=== PATIENT | female | born 1980 | race Caucasian/White ===

== ENCOUNTER 2016-10-28 19:26 | Observation (INO) | payer OTHER ==
[~2016-10-28] VITALS: Ht 162.6 cm; Wt 117.0 kg
--- NOTE | 2016-10-28 19:40 | NUR ---
PT TO TRIAGE WITH RIGHT SIDE ABD PAIN 6/10, SHARP AT TIMES. NAUSEOUS YESTERDAY. DENIES FEVERS. PT HAS HAD CONSTPATION.
--- NOTE | 2016-10-28 19:57 | NUR ---
URINE TRIO OBTAINED SENT TO THE LAB
--- NOTE | 2016-10-28 20:11 | NUR ---
PA STUDENT AT BEDSIDE FOR EVAL
[2016-10-28] MEDS ORDERED: APRI 28 DAY TA1 EACH PO (20:33)
[2016-10-28] MEDS ORDERED: VITAMIN D250000 UNIT PO (20:33)
--- NOTE | 2016-10-28 20:36 | NUR ---
LABS DRAWN AND SENT
--- NOTE | 2016-10-28 20:46 | NUR ---
LUZ MARINA VERMA AT BEDSIDE
[2016-10-28 20:48] LABS: ABSOLUTE BASOPHIL COUNT 0 /CUMM (0.0-0.2); ABSOLUTE EOSINOPHIL COUNT 0.1 /CUMM (0.0-0.7); ABSOLUTE GRANULOCYTE CT 5.8 /CUMM (1.4-6.5); ABSOLUTE LYMPH COUNT 4.1 /CUMM (1.2-3.4); ABSOLUTE MONOCYTE COUNT 0.8 /CUMM (0.10-0.60); BASOPHIL % 0.4 % (0.0-2.0); GRANULOCYTE % 53.5 % (42.2-75.2); MEAN CORPUSCULAR HGB 26.7 PG (27.0-31.0); MEAN CORPUSCULAR HGB CONC 32.3 G/DL (33.0-37.0); MEAN CORPUSCULAR VOLUME 82.5 FL (81.0-99.0); MEAN PLATELET VOLUME 8.6 FL (7.4-10.4); PLATELET COUNT 323 /CUMM (130-400); RBC DISTRIBUTION WIDTH 13.4 % (11.5-14.5); RED BLOOD CELL CT 4.37 /CUMM (4.20-5.40); WHITE BLOOD CELL COUNT 10.8 /CUMM (4.8-10.8)
--- NOTE | 2016-10-28 21:51 | NUR ---
PT TO AND FROM CT
--- NOTE | 2016-10-28 22:42 | CT SCAN REPORT ---
EXAMINATION: CT ABDOMEN AND PELVIS WITHOUT CONTRAST CLINICAL INFORMATION: Right-sided abdominal pain. Evaluate for acute appendicitis. COMPARISON: No relevant prior imaging available. TECHNIQUE: Multidetector volumetric imaging was performed from the superior aspect of the liver through the pubic symphysis. Sagittal and coronal reformatted images were obtained on the technologist's workstation. DLP: 1402.99 mGy-cm FINDINGS: LUNG BASES: Lung bases are clear. There is no pleural or pericardial effusion. LIVER, GALLBLADDER, AND BILIARY TREE: The unenhanced liver is normal in size, shape, and attenuation. No focal hepatic lesion. The gallbladder is unremarkable with no evidence of radiopaque gallstones, gallbladder wall thickening, or obvious pericholecystic inflammatory changes. PANCREAS: Unremarkable. SPLEEN: Unremarkable. ADRENAL GLANDS: Unremarkable. KIDNEYS AND URETERS: There is a 1.4 cm low-density lesion involving the interpolar left kidney best illustrated on axial image 34 of 102 series 2. The density of this lesion measures less than 0 Hounsfield units therefore it may represent a renal angiomyolipoma. Otherwise no discrete renal mass. No hydroureteronephrosis. No worrisome mass or calcification is visualized along the expected course of the right or left ureters. BLADDER: Unremarkable. GASTROINTESTINAL TRACT: There is subtle stranding surrounding a fluid-filled appendix that measures 1.0 cm in maximal diameter best illustrated on sagittal image 109 of 159 series 601. The stomach, small bowel, and colon are otherwise unremarkable. There is no perirectal inflammation. No free intraperitoneal air or fluid. ABDOMINAL WALL: There is a small fat-containing umbilical hernia with no evidence of associated translation. LYMPH NODES: There are a few scattered nonspecific mesenteric lymph nodes. VASCULAR: The unenhanced abdominal aorta and inferior vena cava are unremarkable. PELVIC VISCERA: There is an anteverted uterus. No worrisome adnexal mass. OSSEOUS STRUCTURES: There is a small nonspecific sclerotic lesion within the right ilium best illustrated on axial image 74 of 102 series 2. This finding is suspected to represent a bone island. No other worrisome sclerotic lesions are evident within the [place]ge[place] this examination. There is no evidence of acute fracture or subluxation. There is degenerative spondylosis with associated sclerotic degenerative endplate changes and intervertebral vacuum disc phenomenon at the levels of L4-L5 and L5-S1. IMPRESSION: There is slight enlargement of a fluid-filled appendix that measures 1.0 cm in maximal diameter consistent with early changes of acute appendicitis. Incidentally there is a small well marginated lesion with intralesional fat characteristics involving the interpolar left kidney that measures 1.4 cm in diameter. This finding is felt to represent an angiomyolipoma.
--- NOTE | 2016-10-28 23:15 | NUR ---
LUZ MARINA VERMA IN TO DISCUSS RESULTS AND POC
--- NOTE | 2016-10-29 00:11 | History & Physical ---
SELMA ANDUJAR 10/29/16 0000: General Information and HPI Source of Information: patient Exam Limitations: no limitations History of Present Illness: Patient is a 36yo F that presented to [facility] with 2 day history of abdominal pain. Patient first noticed abdominal discomfort and mild epigastric pain which started late Thursday night to early Thursday morning. Pain has persisted and now mostly located in RLQ but also R flank. She denies N/V and has had only a slight decrease in appetite. She continues to pass flatus and have non bloody formed bowel movements. She denies recent fevers or illnesses. Denies recent travel. Denies illicit drug or alcohol use. No further c/o. Denies CP/SOB. Allergies/Medications Allergies: Coded Allergies: Penicillins (DIARRHEA 10/28/16) azithromycin (DIARRHEA 10/28/16) chilel (HIVES 10/28/16) Home Med list Desogestrel-Ethinyl Estradiol (Apri 28 Day Tablet) 0.15 MG-0.03 MG TABLET 1 TAB PO DAILY CONTROL (Reported) Ergocalciferol (Vitamin D2) (Vitamin D2) 50,000 UNIT CAPSULE 1 CAP PO QTHURS SUPPLEMENT (Reported) Compliance With Home Meds: GOOD Past History Travel History Traveled to [place] past 21 day No Medical History Neurological: migraine EENT: NONE Cardiovascular: NONE Respiratory: pneumonia Gastrointestinal: NONE Hepatic: NONE Renal: NONE Musculoskeletal: NONE Psychiatric: NONE Endocrine: NONE Blood Disorders: NONE Cancer(s): NONE EVALUATOR/Reproductive: NONE Surgical History Surgical History: non-contributory Past Family/Social History Psychosocial History ETOH Use: denies use Illicit Drug Use: denies illicit drug use Review of Systems Review of Systems Constitutional: Denies: chills, fever, malaise. Cardiovascular: Denies: chest pain, palpitations. Respiratory: Denies: cough, short of breath, sputum production. GI: Reports: see HPI. Genitourinary: Denies: dysuria, frequency, hematuria. Musculoskeletal: Reports: no symptoms. Skin: Reports: no symptoms. All Other Systems: Reviewed and Negative Exam & Diagnostic Data Last 24 Hrs of Vital Signs/I&O Vital Signs Date Time Temp Pulse Resp B/P Pulse O2 O2 Flow FiO2 Ox Delivery Rate 10/280 97.5 81 19 156/83 98 Room Air 10/28 2036 Room Air 03/21 1940 98.0 91 16 150/79 98 Room Air Room Air Intake & Output 10/29 0800 10/29 0000 10/28 1600 Intake Total Output Total Balance Patient 258 lb Weight Physical Exam General Appearance Alert, Oriented X3, Cooperative, No Acute Distress Skin No Rashes, No Breakdown, No Significant Lesion HEENT Atraumatic, EOMI, Mucous Membr. moist/pink Neck Supple Cardiovascular Regular Rate Lungs Normal Air Movement Abdomen Normal Bowel Sounds, Soft, No Masses, +McBurney point tenderness without guarding or signs of peritonitis. Neurological Normal Speech, Cranial Nerves 3-12 NL Extremities No Clubbing, No Cyanosis, No Edema, Normal Pulses Last 24 Hrs of Labs/Jalen: Laboratory Tests 10/28/162033: Anion Gap 8, Estimated GFR > 60, BUN/Creatinine Ratio 11.4, Glucose 84, Calcium 9.4, Total Bilirubin 0.4, AST 16, ALT 39, Alkaline Phosphatase 84, Total Protein 6.8, Albumin 3.6, Globulin 3.2, Albumin/Globulin Ratio 1.1, Lipase 35, CBC w Diff NO MAN DIFF REQ, RBC 4.37, MCV 82.5, MCH 26.7 L, RDW 13.4, MPV 8.6, Gran % 53.5, Lymphocytes % 38.0, Monocytes % 7.1, Eosinophils % 1.0, Basophils % 0.4, Absolute Granulocytes 5.8, Absolute Lymphocytes 4.1 H, Absolute Monocytes 0.8 H, Absolute Eosinophils 0.1, Absolute Basophils 0, PUBS MCHC 32.3 L 10/28/161955: Urine Color YEL, Urine Clarity CLEAR, Urine pH 6.0, Ur Specific [place] >= 1.030 , Urine Protein NEG, Urine Ketones NEG, Urine Nitrite NEG, Urine Bilirubin NEG, Urine Urobilinogen 0.2, Ur Leukocyte Esterase NEG, Ur Microscopic EXAM NOT REQUIRED, Urine Hemoglobin NEG, Urine Glucose NEG, Urine Test NEGATIVE Diagnostic Data Other Results EXAM TYPE: CAT - CT ABD & PELVIS W/O IV CONTRAS EXAMINATION: CT ABDOMEN AND PELVIS WITHOUT CONTRAST CLINICAL INFORMATION: Right-sided abdominal pain. Evaluate for acute appendicitis. COMPARISON: No relevant prior imaging available. TECHNIQUE: Multidetector volumetric imaging was performed from the superior aspect of the liver through the pubic symphysis. Sagittal and coronal reformatted images were obtained on the technologist's workstation. DLP: 1402.99 mGy-cm FINDINGS: LUNG BASES: Lung bases are clear. There is no pleural or pericardial effusion. LIVER, GALLBLADDER, AND BILIARY TREE: The unenhanced liver is normal in size, shape, and attenuation. No focal hepatic lesion. The gallbladder is unremarkable with no evidence of radiopaque gallstones, gallbladder wall thickening, or obvious pericholecystic inflammatory changes. PANCREAS: Unremarkable. SPLEEN: Unremarkable. ADRENAL GLANDS: Unremarkable. KIDNEYS AND URETERS: There is a 1.4 cm low-density lesion involving the interpolar left kidney best illustrated on axial image 34 of 102 series 2. The density of this lesion measures less than 0 Hounsfield units therefore it may represent a renal angiomyolipoma. Otherwise no discrete renal mass. No hydroureteronephrosis. No worrisome mass or calcification is visualized along the expected course of the right or left ureters. BLADDER: Unremarkable. GASTROINTESTINAL TRACT: There is subtle stranding surrounding a fluid-filled appendix that measures 1.0 cm in maximal diameter best illustrated on sagittal image 109 of 159 series 601. The stomach, small bowel, and colon are otherwise unremarkable. There is no perirectal inflammation. No free intraperitoneal air or fluid. ABDOMINAL WALL: There is a small fat-containing umbilical hernia with no evidence of associated translation. LYMPH NODES: There are a few scattered nonspecific mesenteric lymph nodes. VASCULAR: The unenhanced abdominal aorta and inferior vena cava are unremarkable. PELVIC VISCERA: There is an anteverted uterus. No worrisome adnexal mass. OSSEOUS STRUCTURES: There is a small nonspecific sclerotic lesion within the right ilium best illustrated on axial image 74 of 102 series 2. This finding is suspected to represent a bone island. No other worrisome sclerotic lesions are evident within the pxhie-gm-bpvm this examination. There is no evidence of acute fracture or subluxation. There is degenerative spondylosis with associated sclerotic degenerative endplate changes and intervertebral vacuum disc phenomenon at the levels of L4-L5 and L5-S1. IMPRESSION: There is slight enlargement of a fluid-filled appendix that measures 1.0 cm in maximal diameter consistent with early changes of acute appendicitis. Incidentally there is a small well marginated lesion with intralesional fat characteristics involving the interpolar left kidney that measures 1.4 cm in diameter. This finding is felt to represent an angiomyolipoma. Assessment/Plan Assessment: 36yo F with acute appendicitis. AVSS, patient remains stable. Appendicitis likely not ruptured at this time. - admit to floor under Dr. Tenzin Ford - NPO - IVF - IV Rocephin and Flagyl - SC heparin and ALPS - I/O's - PRN IV Pain meds - OR tomorrow for laparoscopic vs open appendectomy - Will d/w attending As Ranked By This Provider Problem List: 1. Appendicitis, acute Core Measures/Miscellaneous Acute Coronary Syndrome ACS Diagnosis: No Cerebrovascular Accident CVA/TIA Diagnosis: No Congestive Heart Failure CHF Diagnosis: No Venous Thromboembolism VTE Risk Factors: Acute medical illness, Obesity No Mech VTE prophylaxis d/t: No contraindications No VTE Pharm Prophylaxis d/t: No contraindications VTE Diagnosis: No VTE Type: NONE VTE Confirmed by (Test): NONE Severe Sepsis Severe Sepsis Present: No Septic Shock Septic Shock Present: No Miscellaneous Documentation Attending Case Discussed With: Dr. Cece Ford Primary Care Physician: UNKNOWN Patient sees these Specialists Unknown Level of Patient Care: General Surgical TENZIN FORD MD 10/29/16 1683: General Information and HPI MD Statement: I have seen and personally examined YESYADCHENG and documented this H&P. The patient is a 36 year old F who presented with a patient stated chief complaint of [abdominal pain CT consistent with acute appendicitis Agree with above PA findings and physical exam plan for laparoscopic appendectomy].
--- NOTE | 2016-10-29 00:20 | ED GI/GU/ABDOMINAL COMPLAINT ---
History of Present Illness General Chief Complaint: Abdominal Pain/Flank Pain Stated Complaint: ABD. PAIN Source: patient Exam Limitations: no limitations Vital Signs & Intake/Output Vital Signs & Intake/Output Vital Signs Date Time Temp Pulse Resp B/P Pulse O2 O2 Flow FiO2 Ox Delivery Rate 10/28 2300 97.5 81 19 156/83 98 Room Air 10/28 2036 Room Air 10/28 194 98.0 91 16 150/79 98 Room Air Room Air ED Intake and Output 10/29 0000 10/28 1200 Intake Total Output Total Balance Patient 258 lb Weight Allergies Coded Allergies: Penicillins (DIARRHEA 10/28/16) azithromycin (DIARRHEA 10/28/16) chilel (HIVES 10/28/16) Reconcile Medications Desogestrel-Ethinyl Estradiol (Apri 28 Day Tablet) 0.15 MG-0.03 MG TABLET 1 TAB PO DAILY CONTROL (Reported) Ergocalciferol (Vitamin D2) (Vitamin D2) 50,000 UNIT CAPSULE 1 CAP PO QTHURS SUPPLEMENT (Reported) Triage Note: PT TO TRIAGE WITH RIGHT SIDE ABD PAIN 6/10, SHARP AT TIMES. NAUSEOUS YESTERDAY. DENIES FEVERS. PT HAS HAD CONSTPATION. Triage Nurses Notes Reviewed? yes ? n Is pt currently ? No Onset: Abrupt Duration: day(s): (4), constant, continues in ED Timing: recent history Quality/Severity: mild, moderate Location: right lower quadrant Radiation: no radiation Activities at Onset: none No Modifying Factors: none HPI: 36-year-old female comes into emergency room with right-sided abdominal pain for the past 4 days. Normal appetite. Denies any fever chills vomiting. Some mild constipation. Pain has been jumping all around. Denies any prior abdominal surgeries. Nothing seems to make the symptoms better or worse. Patient reports that her last meal was around noon today. Patient reports that she is currently starving and asking for food. (LUCI SANTOS) Past History Travel History Traveled to [place] past 21 day No Medical History Any Pertinent Medical History? see below for history Neurological: migraine EENT: NONE Cardiovascular: NONE Respiratory: pneumonia Gastrointestinal: NONE Hepatic: NONE Renal: NONE Musculoskeletal: NONE Psychiatric: NONE Endocrine: NONE Blood Disorders: NONE Cancer(s): NONE HOME AGENT/Reproductive: NONE Surgical History Surgical History: non-contributory Psychosocial History What is your primary language [place] Tobacco Use: Never used ETOH Use: denies use Illicit Drug Use: denies illicit drug use Family History Hx Contributory? No (LUCI SANTOS) Review of Systems Review of Systems Constitutional: Reports: no symptoms. EENTM: Reports: no symptoms. Respiratory: Reports: no symptoms. Cardiovascular: Reports: no symptoms. GI: Reports: see HPI. Genitourinary: Reports: no symptoms. Musculoskeletal: Reports: no symptoms. Skin: Reports: no symptoms. Neurological/Psychological: Reports: no symptoms. Hematologic/Endocrine: Reports: no symptoms. Immunologic/Allergic: Reports: no symptoms. All Other Systems: Reviewed and Negative (LUCI SANTOS) Physical Exam Physical Exam General Appearance: well developed/nourished, no apparent distress, alert Head: atraumatic, normal appearance Eyes: Bilateral: normal appearance, EOMI. Ears, Nose, Throat, Mouth: hearing grossly normal, moist mucous membrane Neck: normal inspection Respiratory: normal breath sounds, no respiratory distress Cardiovascular: regular rate/rhythm Gastrointestinal: soft, tenderness (right lower quadrant) Back: normal inspection Extremities: normal range of motion Neurologic/Psych: awake, alert, oriented x 3, normal gait, normal mood/affect Skin: intact, normal color Core Measures ACS in differential dx? No Severe Sepsis Present: No Septic Shock Present: No (LUCI SANTOS) Progress Differential Diagnosis: appendicitis, biliary colic, bowel obstruction, cholecystitis, diverticulitis, ectopic , gastritis, hepatitis, hemorrhoids, ovarian cyst, ovarian torsion, pancreatitis, PID/cervicitis, peptic ulcer, PUD/GERD, perforated viscous, threatened AB, UTI/pyelo Plan of Care: Orders Procedure Date/time Status Nothing by Mouth 10/29 B Active CBC WITHOUT DIFFERENTIAL 10/29 06 Active BASIC ELECTROLYTES PLUS BUN&CR 10/[address] in observation 10/29 0036 Active Pathway - chart 10/28 2358 Active Patient Data 10/28 2358 Active Code Status 10/28 2358 Active LIPASE 10/28 2014 Complete COMPREHENSIVE METABOLIC PANEL 10/28 2014 Complete CBC WITHOUT DIFFERENTIAL 10/28 2014 Complete URINE 10/28 194 Complete URINALYSIS 10/28 194 Complete VTE Mechanical Prophylaxis 10/28 UNK Active Vital Signs 10/28 UNK Active Intake & Output 10/28 UNK Active Activity/Ambulation 10/28 UNK Active Current Medications Sig/Home Start time Last Medication Dose Stop Time Status Admin Ceftriaxone Sodium 1,000 MG DAILY@0000 10/30 0000 AC (Rocephin) Pantoprazole Sodium 40 MG DAILY 10/29 1000 AC (Protonix) Acetaminophen 650 MG Q6PRN PRN 10/28 2344 AC (Tylenol) Morphine Sulfate 2 MG Q3P PRN 10/28 2344 AC (Morphine) Ondansetron HCl 4 MG Q8P PRN 10/28 2344 AC (Zofran) Metronidazole 500 MG ONCE ONE 10/28 2329 CAN (Flagyl) 10/29 0029 N/A 1 UNIT (No Carrier) Laboratory Tests 10/28/162033: Anion Gap 8, Estimated GFR > 60, BUN/Creatinine Ratio 11.4, Glucose 84, Calcium 9.4, Total Bilirubin 0.4, AST 16, ALT 39, Alkaline Phosphatase 84, Total Protein 6.8, Albumin 3.6, Globulin 3.2, Albumin/Globulin Ratio 1.1, Lipase 35, CBC w Diff NO MAN DIFF REQ, RBC 4.37, MCV 82.5, MCH 26.7 L, RDW 13.4, MPV 8.6, Gran % 53.5, Lymphocytes % 38.0, Monocytes % 7.1, Eosinophils % 1.0, Basophils % 0.4, Absolute Granulocytes 5.8, Absolute Lymphocytes 4.1 H, Absolute Monocytes 0.8 H, Absolute Eosinophils 0.1, Absolute Basophils 0, PUBS MCHC 32.3 L 10/28/161955: Urine Color YEL, Urine Clarity CLEAR, Urine pH 6.0, Ur Specific [place] >= 1.030 , Urine Protein NEG, Urine Ketones NEG, Urine Nitrite NEG, Urine Bilirubin NEG, Urine Urobilinogen 0.2, Ur Leukocyte Esterase NEG, Ur Microscopic EXAM NOT REQUIRED, Urine Hemoglobin NEG, Urine Glucose NEG, Urine Test NEGATIVE Diagnostic Imaging: Viewed by Me: CT Scan. Discussed w/RAD: CT Scan. Radiology Impression: SERVICE DATE: 10/28/16-2116 EXAM TYPE: CAT - CT ABD & PELVIS W/O IV CONTRAS EXAMINATION: CT ABDOMEN AND PELVIS WITHOUT CONTRAST CLINICAL INFORMATION: Right-sided abdominal pain. Evaluate for acute appendicitis. COMPARISON: No relevant prior imaging available. TECHNIQUE: Multidetector volumetric imaging was performed from the superior aspect of the liver through the pubic symphysis. Sagittal and coronal reformatted images were obtained on the technologist's workstation. DLP: 1402.99 mGy-cm FINDINGS: LUNG BASES: Lung bases are clear. There is no pleural or pericardial effusion. LIVER, GALLBLADDER, AND BILIARY TREE: The unenhanced liver is normal in size, shape, and attenuation. No focal hepatic lesion. The gallbladder is unremarkable with no evidence of radiopaque gallstones, gallbladder wall thickening, or obvious pericholecystic inflammatory changes. PANCREAS: Unremarkable. SPLEEN: Unremarkable. ADRENAL GLANDS: Unremarkable. KIDNEYS AND URETERS: There is a 1.4 cm low-density lesion involving the interpolar left kidney best illustrated on axial image 34 of 102 series 2. The density of this lesion measures less than 0 Hounsfield units therefore it may represent a renal angiomyolipoma. Otherwise no discrete renal mass. No hydroureteronephrosis. No worrisome mass or calcification is visualized along the expected course of the right or left ureters. BLADDER: Unremarkable. GASTROINTESTINAL TRACT: There is subtle stranding surrounding a fluid-filled appendix that measures 1.0 cm in maximal diameter best illustrated on sagittal image 109 of 159 series 601. The stomach, small bowel, and colon are otherwise unremarkable. There is no perirectal inflammation. No free intraperitoneal air or fluid. ABDOMINAL WALL: There is a small fat-containing umbilical hernia with no evidence of associated translation. LYMPH NODES: There are a few scattered nonspecific mesenteric lymph nodes. VASCULAR: The unenhanced abdominal aorta and inferior vena cava are unremarkable. PELVIC VISCERA: There is an anteverted uterus. No worrisome adnexal mass. OSSEOUS STRUCTURES: There is a small nonspecific sclerotic lesion within the right ilium best illustrated on axial image 74 of 102 series 2. This finding is suspected to represent a bone island. No other worrisome sclerotic lesions are evident within the [id number] this examination. There is no evidence of acute fracture or subluxation. There is degenerative spondylosis with associated sclerotic degenerative endplate changes and intervertebral vacuum disc phenomenon at the levels of L4-L5 and L5-S1. IMPRESSION: There is slight enlargement of a fluid-filled appendix that measures 1.0 cm in maximal diameter consistent with early changes of acute appendicitis. Incidentally there is a small well marginated lesion with intralesional fat characteristics involving the interpolar left kidney that measures 1.4 cm in diameter. This finding is felt to represent an angiomyolipoma. DICTATED BY: MARTI GIRON,EVY Niño DATE/TIME DICTATED:10/28/162227 PEANUT FARMER:MERCEDEZ Initial ED EKG: none (LUCI SANTOS) Departure Departure Disposition: STILL A PATIENT Condition: Stable Clinical Impression Primary Impression: Acute appendicitis Referrals: UNKNOWN (PCP/Family) Departure Forms: Customer Survey General Discharge Information Observation Note Spoke With: CORNELIA BRANTLEY MD Physician Advisor Notified: WELLINGTON SUTTON DO Place Patient In: Non-ED OBS Care Area Rationale for Observation: My rational for observation is as follows . Patient require surgery tomorrow morning. IV antibiotics. Positive CT scan for appendicitis. (LUCI SANTOS) PA/PROPERTY MANAGEMENT SPECIALIST Co-Sign Statement Statement: ED Attending supervision documentation- [] I saw and evaluated the patient. I have also reviewed all the pertinent lab results and diagnostic results. I agree with the findings and the plan of care as documented in the PA's/PROPERTY MANAGEMENT SPECIALIST's documentation. [x] I have reviewed the ED Record and agree with the PA's/PROPERTY MANAGEMENT SPECIALIST's documentation. [] Additions or exceptions (if any) to the PAs/PROPERTY MANAGEMENT SPECIALIST's note and plan are summarized below: [] (NATALY GIRON,RADHA Baeza)
--- NOTE | 2016-10-29 00:34 | NUR ---
PT APPEARS TO BE RESTING COMFORTBALY. DENIES PAIN AND NAUSEA. RESP UNLABORED. SKIN WARM AND DRY. NO APPARENT DISTRESS
--- NOTE | 2016-10-29 02:30 | NUR ---
PT APPEARS TO BE RESTING COMFORTBALY. PT A/O X4. RESP UNLABORED. SKIN WARM AND DRY. PT AMBULATORY TO BATHROOM. PT DENIES NAUSEA AND AND PAIN
--- NOTE | 2016-10-29 03:26 | NUR ---
PT BED ASSIGNMENT 204-1
--- NOTE | 2016-10-29 03:52 | NUR ---
REPORT GIVEN TO LIVIA PEARSON
[2016-10-29 04:49] VITALS: BP 140/86
[2016-10-29 05:48] VITALS: BP 156/96
[2016-10-29 06:49] VITALS: BP 170/80
[2016-10-29] MEDS ORDERED: PERCOCET 5-3251 EACH PO (06:51)
--- NOTE | 2016-10-29 06:54 | Patient Discharge Instructions ---
Discharge Instructions General Discharge Information You were seen/treated for: Acute appendicitis You had these procedures: Laparoscopic appendectomy Watch for these problems: Significantly increased pain, temperatures over 101, vomiting Increased redness or drainage from around the incisions No bath, but you may shower: Yes Other wound care: Remove dressings in 24 hours leaving white strips intact until seen by your surgeon. Shower regularly and pat dry Diet Continue normal diet: Yes Activity Activity Self Limited: Yes Pounds, do NOT lift more than: 10 Other activity limits: No driving or operating heavy machinery until seen by your surgeon Acute Coronary Syndrome Inclusion Criteria At DC or during hospital stay patient has or had the following: ACS DIAGNOSIS No Discharge Core Measures Meds if any: Prescribed or Continued at Discharge Meds if any: NOT Prescribed or Continued at Discharge Congestive Heart Failure Inclusion Criteria At DC or during hospital stay patient has or had the following: CHF DIAGNOSIS No Discharge Core Measures Meds if any: Prescribed or Continued at Discharge Meds if any: NOT Prescribed or Continued at Discharge Cerebrovascular accident Inclusion Criteria At DC or during hospital stay patient has or had the following: CVA/TIA Diagnosis No Discharge Core Measures Meds if any: Prescribed or Continued at Discharge Meds if any: NOT Prescribed or Continued at Discharge Venous thromboembolism Inclusion Criteria VTE Diagnosis No VTE Type NONE VTE Confirmed by (Test) NONE Discharge Core Measures - Per Current guidelines, there needs to be overlap - treatment for the first 5 days of Warfarin therapy. - If discharged on Warfarin prior to 5 days of - overlap therapy, the patient will need to be - assessed for post discharge needs including - *Post discharge parental anticoagulation - *Warfarin and/or parental anticoagulation education - *Follow up date to check INR post discharge At least 5 days overlap therapy as Inpatient No Meds if any: Prescribed or Continued at Discharge Note: Overlap Therapy is Warfarin and Anticoagulant Meds if any: NOT Prescribed or Continued at Discharge
--- NOTE | 2016-10-29 06:56 | Surg Short-stay <48hrs Dis Sum ---
Visit Information Visit Dates Admission Date: 10/29/16 Discharge Date: 10/29/16 Surgical Short Stay DC Summary Admission Diagnosis: Acute appendicitis Final Diagnosis: Same Procedure(s): Laparoscopic appendectomy Summary/Significant Findings: The patient was admitted on 10/29/2016. She reports operating theater where she underwent a laparoscopic appendectomy. Postoperative the patient progressed as expected, her pain was under adequate control, she tolerated diet without nausea. The patient was discharged with an uneventful hospital course. Condition at Discharge: Stable Discharge Disposition: home or self care Discharge instructions provided to patient/family: Yes Post discharge follow-up plan: Call the office to be seen in 2 weeks
--- NOTE | 2016-10-29 07:51 | NUR ---
NURSING NOTE; ASSUMED CARE OF PT; PT IN OR. WILL DO COMPLETE ASSESSMENT UPON RETURN TO FLOOR.
[2016-10-29 09:15] VITALS: BP 128/80
--- NOTE | 2016-10-29 09:15 | NUR ---
NURSING NOTE; PT BACK TO FLOOR VIA STRETCHER WITH DISTRIBUTION FROM PACU, S/P LAP APPY. PT AWAKE, A/OX3, AMBULATED FROM STRETCHER TO BR; VOIDED 300ML CLEAR YELLOW URINE IN HAT. VITALS OBTAINED AND STABLE, ROOM AIR, INSENTIVE SPIR GIVEN, 3 BANDAIDS TO ABD C/D/I. PT C/O 08/19 PAIN TO ABDOMEN; DENIES NEED FOR PAIN MEDS, IV SITES X2 INTACT, IVF PER MD ORDER, ALPS IN PLACE. PT ASKING TO ORDER FOOD, LOT ASSOCIATE TO COME TAKE ORDER. CALL TAVARES IN REACH, AT BEDSIDE, CONT TO MONITOR.
[2016-10-29 14:39] VITALS: BP 134/80
--- NOTE | 2016-11-09 18:26 | Operative Report ---
Operative/Inv Procedure Report Surgery Date: 10/29/16 Name of Procedure: Laparoscopic Appendectomy Pre-Operative Diagnosis: acute appendicitis Post-Operative Diagnosis: same Estimated Blood Loss: less than 50ml Surgeon/Certified Corporate [employer] Executive: CORNELIA BRANTLEY MD Anesthesia: general endotracheal tube IV Fluids: LR Urine Output: n/a Drains: none Specimens: appendix Complications: none Condition: stable Operative Indication: see admission h and P Operative/Procedure Note Note: aftered informed consent the pt was taken to the operating room and placed on the OR table in the supine position. Next she underwent a general anesthesia. The abdomen was prepped and draped in the usual sterile fasion. An infraumbilical incision was made with a #15 blade and the incision carried down to the fascia with the electrocautery. The fascia was opened transversely 1 cm with the cautery and under direct visualization a 12mm blunt port cannula was inserted without difficulty. We than insufflated the abdomen to 14mm CO2 pressure. Under direct visualization we inserted 2 5mm trocars in the left lower quadrant. Using a Sonicision scalpel we divided the mesoappendix while elevating the appendix. The appendix was thickened and inflammed but no evidence of perforation. We stapled across the base of the appendix with the cecum using a endo renay stapler with a vascular load. We placed the appendix in a # 10 endocatch bag and pulld it out through the umbilical trocar port under direct visualization. we than removed all trocars and closed the fascia with an 0- vicryl suture. We closed the skin incisions with 4-0 monocryl and applied dry sterile dressings Findings: acute nonruptured appendicitis Discharge Disposition: PACU
== END 2016-10-29 15:05 ==
LOC: ENRESERVTM → ENRESERVDT → ERH 19:26 → ERHI 10-29 00:36 → ENPENDDIS 10-29 00:36 → 2NB 10-29 04:19
PROVIDERS: Physician Assistant Medical; ADMIT Surgery
DX: K35.80 Unspecified acute appendicitis (principal)
CPT/HCPCS: 74176; 81003; 81025; 82436; 88304; 96372; 96374; 96375; J0131; J0696; J1644; J2405; J7042; Q2036